=== PATIENT | female | born 1970 | race Caucasian/White ===

== ENCOUNTER → 2018-10-02 | Outpatient (CLI) | payer OTHER ==
--- NOTE | 2018-10-03 12:02 | DIREP ---
PROCEDURE:MRI - CERVICAL SPINE WITHOUT CONTRAST COMPARISON:None. INDICATIONS:M79.2 NEURALGIA AND NEURITIS TECHNIQUE: FINDINGS: There is straightening of normal lordotic curvature of the cervical spine consistent with muscle spasm. Broad-based right-sided disc herniation at C6-7 causes moderate deformity of the thecal sac and moderate to severe right foraminal stenosis. Bulging annulus at C4-5 with moderate left and mild right foraminal stenosis. MRI of the cervical spine is otherwise normal. CONCLUSION: 1. Muscle spasm with broad-based right-sided disc herniation at C6-7 causing moderate right foraminal stenosis. 2. Bulging annulus at C4-5 with moderate left and mild right foraminal stenosis. Dictated by: Franicsco J Banks M.D. on 10/03/2018 at 11:00 AM
== END | disposition home or self-care (01) ==
LOC: RAD 16:04
PROVIDERS: ATTEND Nurse Practitioner
DX: M50.123 Cervical disc disorder at C6-C7 level with radiculopathy (principal); M48.02 Spinal stenosis, cervical region; M43.8X2 Other specified deforming dorsopathies, cervical region; R25.2 Cramp and spasm
CPT/HCPCS: 72141